=== PATIENT | female | born 1995 | race American Indian/Alaskan Native ===

== ENCOUNTER 2020-07-26 08:17 | Outpatient (CLI) | payer OTHER ==
[2020-07-26 10:12] VITALS: BP 118/73
--- NOTE | 2020-07-26 10:31 | Ultrasound Report ---
Obstetric ultrasound limited INDICATION: Pelvic pain. Evaluate cervical length IMPRESSION: The cervical length measures 2.3 cm. The heart rate was about 151 bpm. Signer Name: Augusto Dsouza MD Signed: 07/26/2020 10:27 AM Workstation Name: [id number]
[2020-07-26 11:33] LABS: Bacteria,Urine 1+ /HPF (Negative); Bilirubin,Urine NEG (Negative); Blood,Urine NEG (Negative); Color,Urine Yellow (Yellow); Protein,Urine <15 mg/dL mg/dL (Negative); Urobilinogen,Urine < 2.0 mg/dL (<2.0)
== END 2020-07-26 13:02 | disposition home or self-care (01) ==
LOC: TRG 08:17 → APU 08:19 → TRG 13:02
PROVIDERS: ATTEND Obstetrics & Gynecology
DX: O23.42 Unspecified infection of urinary tract in pregnancy, second trimester (principal); Z3A.22 22 weeks gestation of pregnancy
CPT/HCPCS: 59025; 76815; 81001

== ENCOUNTER 2020-10-26 10:52 | Outpatient (CLI) | payer OTHER ==
[2020-10-26 12:38] LABS: Hematocrit 36.2 % (30.3-42.9); Hemoglobin 12.4 gm/dl (10.1-14.3); Mean Corpuscular HGB Conc 34 % (30-34); Mean Corpuscular Volume 94 fl (79-97); Platelet Count 275 K/mm3 (140-440); Red Blood Count 3.86 M/mm3 (3.65-5.03); Red Cell Distribution Width 13.4 % (13.2-15.2)
[2020-10-26 12:42] LABS: Bacteria,Urine 1+ /HPF (Negative); Bilirubin,Urine NEG (Negative); Blood,Urine NEG (Negative); Color,Urine Yellow (Yellow); Mucus,Urine FEW /HPF; Protein,Urine <15 mg/dL mg/dL (Negative); Urobilinogen,Urine < 2.0 mg/dL (<2.0)
[2020-10-26 12:58] LABS: Alanine Aminotransferase 16 units/L (7-56); Uric Acid 3.8 mg/dL (3.5-7.6)
[2020-10-26 13:27] VITALS: BP 113/61
[2020-10-26] MEDS ORDERED: ACETAMINOPHEN 500 MG TAB PO SCH (14:00)
== END 2020-10-26 14:13 | disposition home or self-care (01) ==
LOC: TRG 10:52 → APU 10:54 → TRG 14:13
PROVIDERS: ATTEND Obstetrics & Gynecology
DX: O16.3 Unspecified maternal hypertension, third trimester (principal); Z3A.36 36 weeks gestation of pregnancy
CPT/HCPCS: 36415; 59025; 81001; 82565; 83615; 84450; 84460; 84550; 85027